=== PATIENT | male | born 2000 | race Caucasian/White ===

== ENCOUNTER 2023-07-16 05:58 | Emergency (ER) | payer OTHER ==
[~2023-07-16] VITALS: Ht 157.5 cm; Wt 72.6 kg
[~2023-07-16 05:58] MED LIST: ALBU.083IS IH; ALBU90OI INH; CETI5 PO; CRUTCH4 USE; FLUT110OIA IH; Flovent 110 MCG12 GM INH; INHALERS; MONT10T PO; OTC ALLERGY MEDS; PRED15SY PO; PRED20 PO; Prednisone20 MG PO; RXCODACET PO; Ventolin/Prove6.7 GM INH
[2023-07-16] MEDS ORDERED: Ventolin/Prove6.7 GM INH (06:16)
[2023-07-16 06:23] LABS: BASOPHILS ABSOLUTE AUTO 0.06 K/mm3 (0.00-0.23); BASOPHILS PERCENT AUTO 1 % (0-2); EOSINOPHILS ABSOLUTE AUTO 0.75 K/mm3 (0.00-0.68); EOSINOPHILS PERCENT AUTO 12 % (0-6); Hematocrit 45.8 % (37.0-53.0); Hemoglobin 16.1 g/dL (13.5-17.5); IMMATURE GRAN ABSOLUTE AUTO 0.01 K/mm3 (0.00-0.10); IMMATURE GRAN PERCENT AUTO 0 % (0-1); LYMPHOCYTES ABSOLUTE AUTO 2.52 K/mm3 (0.84-5.20); LYMPHOCYTES PERCENT AUTO 39 % (21-46); MONOCYTES ABSOLUTE AUTO 0.61 K/mm3 (0.16-1.47); MONOCYTES PERCENT AUTO 10 % (4-13); Mean Corpuscular HGB 28.6 pg (26.0-34.0); Mean Corpuscular HGB Conc 35.2 g/dL (31.5-36.5); Mean Corpuscular Volume 81 fL (80-100); Mean Platelet Volume 9.7 fL (9.1-12.4); NEUTROPHILS PERCENT AUTO 39 % (41-73); Platelet Count 243 K/mm3 (150-400); RDW Coefficient Variation 12.4 % (11.7-14.2); RDW Standard Deviation 36.6 fL (35.1-46.3); Red Blood Cell Count 5.63 M/mm3 (4.30-5.90); White Blood Cell Count 6.45 K/mm3 (4.00-11.30)
[2023-07-16 06:46] LABS: Albumin, Blood 4.2 g/dL (3.4-5.0); Albumin/Globulin Ratio 1.3 (0.8-1.8); Bilirubin, Total 1.6 mg/dL (0.1-1.0); Bun/Creatinine Ratio 12.4 (12.0-20.0); Creatinine, Blood 1.05 mg/dL (0.60-1.20); Globulin, Blood 3.2 g/dL (2.2-4.0); Potassium, Blood 3.9 mmol/L (3.5-5.5); Total Protein, Blood 7.4 g/dL (6.4-8.2)
[2023-07-16 07:25] LABS: Source, Urine Voided
[2023-07-16 07:43] LABS: Appearance, Urine Hazy (Clear); Bilirubin, Urine Neg (Neg); Blood, Urine 5+ (Neg); Color, Urine Yellow (P-Yellow); Glucose Qualitative, Urine Neg (Neg); Ketones, Urine Neg (Neg); Leukocyte Esterase, Urine Neg (Neg); Nitrite, Urine Neg (Neg); Protein, Urine 2+ (Neg); Urobilinogen, Urine NORM (Normal)
[2023-07-16 08:15] VITALS: BP 128/84
[2023-07-16 08:16] LABS: Mucus Heavy (0-Heavy); Red Blood Cells, Urine TNTC /hpf (0-2)
[2023-07-16 08:18] LABS: Spermatozoa Few /hpf
[2023-07-16 08:19] LABS: Bacteria Few /hpf
[2023-07-16 08:20] LABS: White Blood Cells, Urine 0-2 /hpf (0-5)
[2023-07-16 08:21] LABS: Squamous Epithelial Cells Rare /hpf (Few)
[2023-07-16] MEDS ORDERED: HYDROCODONE-AC1 EA10 PO (08:30)
== END 2023-07-16 08:40 | disposition home or self-care (01) ==
LOC: ER 05:58
PROVIDERS: Emergency Medicine
DX: N13.2 Hydronephrosis with renal and ureteral calculous obstruction (principal); J98.01 Acute bronchospasm
CPT/HCPCS: 74176; 80053; 81001; 83690; 85025; 94640; 94664; 96361; 96374; 99284-25; J1885; J7030